=== PATIENT | female | born 1940 | race Caucasian/White ===

== ENCOUNTER 2018-02-22 01:40 | Inpatient (IN) | payer MEDICARE, BC ==
[~2018-02-22] VITALS: Ht 172.7 cm; Wt 68.5 kg
[2018-02-22] VITALS (9 sets, daily range): BP systolic 134–165; BP diastolic 59–79
--- NOTE | 2018-02-22 02:00 | NUR ---
ONE [employer]IECE EXPANSION MAKER HAND NOTES RECEIVED PT FROM [facility]. PT WENT FROM HOME TO [facility]. MRI SHOWED PT HAD ACUTE STROKE. PT HAS R SIDE FACIAL DROOPING. A AND OX1-2, PT CAME TO [facility]IA AMBULANCE. PT HAS R AC, IV S/L. ALL ADMISSION ORDERS COMPLETED. ALL DUE MEDS GIVEN. ALL SAFETY PRECAUTIONS TAKEN. BED IN LOW LOCKED POSITION, CALL LIGHT WITHIN REACH.WILL ENDORSE TO AM RN FOR JEFF.
[2018-02-22] MEDS ORDERED: LINA145C PO (02:49)
[2018-02-22] MEDS ORDERED: AMYL1CAP54 PO (02:49)
[2018-02-22] MEDS ORDERED: METO25TA3 PO (02:49)
[2018-02-22] MEDS ORDERED: ERGO500040 PO (02:49)
[2018-02-22] MEDS ORDERED: MECL12.582 PO (02:49)
[2018-02-22] MEDS ORDERED: HYDR-552 PO (02:49)
[2018-02-22] MEDS ORDERED: FOLI0.8T2 PO (02:49)
[2018-02-22] MEDS ORDERED: PRED1TAB PO (02:49)
[2018-02-22] MEDS ORDERED: LEVO125T8 PO (02:49)
[2018-02-22] MEDS ORDERED: INSU100V7 SQ (02:49)
[2018-02-22] MEDS ORDERED: EVOL140S SQ (02:49)
[2018-02-22] MEDS ORDERED: ASPI-1152 PO (02:49)
[2018-02-22] MEDS ORDERED: HYDROCODONE/APAP 5/325MG 1 EACH TABLET PO PRN ×2 (03:00→03:30)
[2018-02-22] MEDS ORDERED: MAGNESIUM HYDROXIDE 30 ML UDC PO PRN (03:00)
[2018-02-22] MEDS ORDERED: MAG HYDROX/AL HYDROX/SIMETH 30 ML UDC PO PRN (03:00)
[2018-02-22] MEDS ORDERED: ZOLPIDEM TARTRATE 5 MG TABLET PO PRN (03:00)
[2018-02-22] MEDS ORDERED: ACETAMINOPHEN 325 MG TABLET PO PRN (03:00)
[2018-02-22] MEDS ORDERED: ONDANSETRON HCL/PF 4 MG/2 ML VIAL IVP PRN (03:00)
[2018-02-22] MEDS ORDERED: Z GUARD REMEDY 2 OZ OINT TP PRN (03:00)
[2018-02-22] MEDS ORDERED: ERGOCALCIFEROL (VITAMIN D 2) 50,000 UNIT CAPSULE PO SCH (03:30)
[2018-02-22] MEDS: BLOOD SUGAR DIAGNOSTIC 1 EACH STRIP IN SCH ×3 (06:11→16:18)
[2018-02-22 07:23] LABS: MAGNESIUM 2.4 mg/dL (1.8-2.4); PHOSPHORUS 4.5 mg/dL (2.5-4.9)
[2018-02-22] MEDS ORDERED: LEVOTHYROXINE SODIUM 125 MCG TABLET PO SCH (07:30)
[2018-02-22] MEDS ORDERED: BLOOD SUGAR DIAGNOSTIC 1 EACH STRIP IN SCH (07:30)
--- NOTE | 2018-02-22 07:37 | NUR ---
RN CLOSING NOTES NO CHANGE IN PTS CONDITION. MRSA SWAB DONE. ALL STROKE EVALUATION AND CHARTING DONE. PT KEPT SAFE. BED ALARM ON. BED IN LOW LOCKED POSITION. WILL ENDORSE TO AM MARY.
[2018-02-22] MEDS: LIPASE/PROTEASE/AMYLASE 1 EACH CAPSULE.DR PO SCH ×3 (08:00→17:18)
[2018-02-22 08:10] LABS: TROPONIN I 0.024 ng/mL (0.00-0.056)
[2018-02-22 08:15] LABS: ALKALINE PHOSPHATASE 71 U/L (46-116); ASPARTATE AMINOTRANSFERASE 6 U/L (15-37); B-TYPE NATRIURETIC PEPTIDE 9671 PG/ML (0-125); BILIRUBIN,TOTAL 0.4 mg/dL (0.2-1.0); CALCIUM, SERUM 8.9 mg/dL (8.5-10.1); CARBON DIOXIDE 22 mmol/L (21-32); CHLORIDE 100 mmol/L (98-107); GLUCOSE 148 mg/dL (74-106); POTASSIUM 4.7 mmol/L (3.5-5.1); SODIUM SERUM 136 mmol/L (136-145); TOTAL PROTEIN, SERUM 6.6 g/dL (6.4-8.2); UREA NITROGEN, BLOOD 31 mg/dL (7-18)
[2018-02-22] MEDS ORDERED: VIT B CMPLX 3/FA/VIT C/BIOTIN 1 TAB TABLET PO SCH (09:00)
[2018-02-22] MEDS ORDERED: Medication Not On Formulary EA (Linaclotide (Linzess) 145 MCG) PO SCH (09:00)
[2018-02-22] MEDS ORDERED: MECLIZINE HCL 12.5 MG TABLET PO PRN (09:00)
[2018-02-22] MEDS ORDERED: predniSONE 1 MG TABLET PO SCH (09:00)
[2018-02-22] MEDS ORDERED: METOPROLOL SUCCINATE 25 MG TAB.SR.24H PO SCH ×3 (09:00→17:00)
[2018-02-22] MEDS ORDERED: ASPIRIN EC 325 MG TABLET.DR PO SCH (09:00)
[2018-02-22] MEDS ORDERED: INSULIN GLARGINE, 100 UNIT/ML CARTRIDGE SQ SCH ×2 (09:00→22:00)
[2018-02-22 09:26] LABS: BASOPHILS # (AUTO) 0.1 /CMM (0.0-0.2); BASOPHILS % (AUTO) 1.1 % (0.0-2.0); HEMATOCRIT 36 % (33-45); HEMOGLOBIN 11.4 g/dL (11.5-14.8); LYMPHOCYTES # (AUTO) 0.7 /CMM (0.8-4.8); LYMPHOCYTES % (AUTO) 9.3 % (20.0-44.0); MEAN CORPUSCULAR HEMOGLOBIN 29 PG (26.0-33.0); MEAN CORPUSCULAR HGB CONC 31 g/dl (31.0-36.0); MEAN CORPUSCULAR VOLUME 92 fL (82-100); MONOCYTES # (AUTO) 0.8 /CMM (0.1-1.30); MONOCYTES % (AUTO) 11.5 % (2.0-12.0); NEUTROPHILS # (AUTO) 5.3 /CMM (1.8-8.9); NEUTROPHILS % (AUTO) 74.1 % (43.0-81.0); PLATELET COUNT (AUTO) 164 /CMM (150-450); RDW COEFFICIENT OF VARIATION 13.6 (11.5-15.0); RED BLOOD CELL COUNT(AUTO) 3.95 MIL/uL (4.0-5.2); WHITE BLOOD COUNT (AUTO) 7.2 K/uL (4.3-11.0)
[2018-02-22 09:51] LABS: INR 0.93 (0.87-1.13)
[2018-02-22 10:01] LABS: ALANINE AMINOTRANSFERASE 10 U/L (12-78)
[2018-02-22 10:19] LABS: ALBUMIN 3.1 g/dL (3.4-5.0)
[2018-02-22 10:44] LABS: THYROID STIMULATING HORMONE 0.702 uIU/mL (0.358-3.74)
[2018-02-22] MEDS ORDERED: DEXTROSE 50%-WATER 50 ML DISP.SYRIN IV PRN (11:30)
[2018-02-22] MEDS ORDERED: *INSULIN ASPART NOVOLOG 100 UNIT/ML CARTRIDGE SQ PRN (11:30)
[2018-02-22] MEDS ORDERED: INSULIN ASPART/LISPRO 100 UNIT/ML CARTRIDGE SQ PRN (11:30)
--- NOTE | 2018-02-22 18:10 | NUR ---
RESPONDED TO [facility] FOR CODE STROKE. PATIENT ADMITTED FOR ACUTE STROKE 02/22/18 AT 0200. PER PRIMARY RN-PATIENT NOTED FOR FACIAL DROOP AND WEAKNESS ON RIGHT ARM. PATIENT WAS ACCOMPANIED TO CT FOR REPEAT HEAD CT. SPOKE TO EMILY ANTONIO.. NOTIFIED OF CHANGE OF CONDITION. PER BRISEIDA. NO FURTHER INTERVENTION AT THIS TIME. CODE STROKE SHOULD HAVE NOT BEEN CALLED. OKAY TO DO REPEAT HEAD CT. PATIENT SYMPTOMES RESOLVED AT THIS TIME. NO WEAKNESS ON BUE/BLE. NO CHANGE IN SPEECH PATTERN. CONTINUE NEURO CHECKS PER PROTOCOL.
--- NOTE | 2018-02-22 18:14 | NUR ---
Call to [facility], Doctor Andrés. Left message on answering service for evaluation of patient with acute versus chronic stroke.
--- NOTE | 2018-02-22 19:37 | NUR ---
Patient handoff report attempted for second time at [facility]. Unit public service representative said call back first time. Second time says will call back to [facility] [phone] for report after looking over chart.
--- NOTE | 2018-02-22 19:51 | NUR ---
Handoff report to Johnathan HOANG with [facility]. Patient will go to room 4254.
--- NOTE | 2018-02-22 20:00 | NUR ---
telephone maintainer notes received pts in bed awake and responsive , daughter at bedside , as per endorsement pts to be tranfer to [facility] per family request.
--- NOTE | 2018-02-22 20:48 | NUR ---
telephone clerks supervisor notes accucheck done 254mg/dl as per request by family lantus 20 units given as ordered. oj offered.daugther at bedside.
--- NOTE | 2018-02-22 20:54 | NUR ---
telescope repairer notes pts was picked up by [facility] in stable condition v/s stable afebrile, going to [facility] room 4254 .pts was accpd by 2 daughters.
[2018-02-22] MEDS ORDERED: SIMVASTATIN 40 MG TABLET PO SCH (22:00)
== END 2018-02-22 20:54 | disposition short-term general hospital (02) | DRG 64 ==
LOC: TELE1 01:40
PROVIDERS: ADMIT Family Medicine; ATTEND Family Medicine
DX: I63.9 Cerebral infarction, unspecified (principal); I21.A1 Myocardial infarction type 2; N17.0 Acute kidney failure with tubular necrosis; R47.01 Aphasia; E11.9 Type 2 diabetes mellitus without complications; E78.5 Hyperlipidemia, unspecified; E03.9 Hypothyroidism, unspecified; G35 Multiple sclerosis; I11.0 Hypertensive heart disease with heart failure; I50.9 Heart failure, unspecified; Z86.73 Personal history of transient ischemic attack (TIA), and cerebral infarction without residual deficits; Z95.2 Presence of prosthetic heart valve; R29.702 NIHSS score 2
CPT/HCPCS: 36415; 70450-TC; 71045-TC; 80053-TC; 80061-TC; 82962-TC; 83735-TC; 83880; 84100-TC; 84443-TC; 84484-TC; 85025-TC; 85652-TC; 85730-TC; 87081-TC; 92611-TC; 93307-TC; J1815; J7512; Z7610